=== PATIENT | male | born 1995 | race Caucasian/White ===

== ENCOUNTER 2017-02-25 04:12 | Emergency (ER) | payer SELFPAY ==
[2017-02-25 04:12] VITALS: BMI 18.2
[2017-02-25 04:38] VITALS: BP 120/68; PULSE 98; RESP 18; TEMP 98; O2SAT 100
--- NOTE | 2017-02-25 04:48 | ED PDOC ---
HPI: Psych/Substance Abuse Time Seen by Provider: 02/25/17 04:13 Chief Complaint (Nursing): Alcohol Ingestion Chief Complaint (Provider): ETOH - Found sleeping on sidewalk History Per: Patient History/Exam Limitations: no limitations Onset/Duration Of Symptoms: Mins Current Symptoms Are (Timing): Still Present Modifying Factor(s): Alcohol Additional Complaint(s): Pt states he was out drinking with friends this evening. States he was waiting for a ride. Pt denies complaints. Pt also denies drug use. Past Medical History Reviewed: Historical Data, Nursing Documentation, Vital Signs Vital Signs: Last Vital Signs Temp 98 F 02/25/17 04:18 Pulse 98 H 02/25/17 04:18 Resp 18 02/25/17 04:18 BP 120/68 02/25/17 04:18 Pulse Ox 100 02/25/17 04:18 - Medical History PMH: Asthma Denies: Chronic Kidney Disease - Surgical History Surgical History: No Surg Hx - Family History Family History: States: Unknown Family Hx - Living Arrangements Living Arrangements: With Family - Social History Current smoker - smoking cessation education provided: No - Home Medications Home Medications: Ambulatory Orders Medication Instructions Recorded Ondansetron ODT [Zofran ODT] 1 odt PO BID PRN #6 odt 11/29/15 - Allergies Allergies/Adverse Reactions: Allergies Allergy/AdvReac Type Severity Reaction Status Date / Time amoxicillin Allergy SHORTNESS Verified 11/29/15 03:28 OF BREATH cefaclor Allergy RASH Verified 11/29/15 03:28 clavulanic acid Allergy SHORTNESS Verified 11/29/15 03:28 OF BREATH Review of Systems ROS Statement: Except As Marked, All Systems Reviewed And Found Negative Cardiovascular: Negative for: Chest Pain Respiratory: Negative for: Cough Physical Exam - Reviewed Nursing Documentation Reviewed: Yes Vital Signs Reviewed: Yes - Physical Exam Appears: Positive for: Well, Non-toxic, No Acute Distress Head Exam: Positive for: ATRAUMATIC, NORMAL INSPECTION, NORMOCEPHALIC Skin: Positive for: Normal Color, Warm, DRY Eye Exam: Positive for: Normal appearance ENT: Positive for: Normal ENT Inspection Neck: Positive for: Normal, Painless ROM Cardiovascular/Chest: Positive for: Regular Rate, Rhythm Respiratory: Positive for: Normal Breath Sounds. Negative for: Accessory Muscle Use, Respiratory Distress Back: Positive for: Normal Inspection Extremity: Positive for: Normal ROM Neurologic/Psych: Positive for: Alert, Oriented - ECG O2 Sat by Pulse Oximetry: 100 Disposition - Clinical Impression Clinical Impression: Alcohol abuse - Patient ED Disposition Is Patient to be Admitted: No Counseled Patient/Family Regarding: Diagnosis, Need For Followup - Disposition Disposition: Routine/Home Disposition Time: 04:56 Condition: GOOD Instructions: Abuse of Alcohol (ED)
== END 2017-02-25 06:58 | disposition home or self-care (01) ==
LOC: H.ER 04:12
DX: F10.10 Alcohol abuse, uncomplicated (principal); J45.909 Unspecified asthma, uncomplicated